=== PATIENT | female | born 1960 | race Caucasian/White ===

== ENCOUNTER 2017-05-01 20:07 | Emergency (ER) | payer MEDICAID ==
[2017-05-01 20:37] LABS: APPEARANCE,URINE CLEAR; BILIRUBIN,URINE NEGATIVE (NEGATIVE); GLUCOSE, URINE NEGATIVE (NEGATIVE); KETONES,URINE NEGATIVE (NEGATIVE); LEUKOCYTE ESTERASE,URINE NEGATIVE (NEGATIVE); NITRITE,URINE NEGATIVE (NEGATIVE); PROTEIN,URINE NEGATIVE (NEGATIVE); URINE SPECIFIC GRAVITY 1.002; UROBILINOGEN,URINE NEGATIVE mg/dL (<2.0)
[2017-05-01] MEDS ORDERED: OXYCODONE HCL IR 5 MG TABLET PO ONE (20:48)
[2017-05-01 21:01] LABS: URINE BARBITURATES SCREEN NEGATIVE; URINE METHADONE SCREEN NEGATIVE; URINE OPIATES LOW NEGATIVE; URINE PHENCYCLIDINE SCREEN NEGATIVE
--- NOTE | 2017-05-01 21:07 | ER Document Report ---
ED Psych Disorder / Suicide - General Chief Complaint: Psych Problem Stated Complaint: SUICIAL IDEATION Time Seen by Provider: 05/01/17 20:33 Mode of Arrival: Ambulatory Information source: Patient TRAVEL OUTSIDE OF THE [place] IN LAST 30 DAYS: No - HPI Patient complains to provider of: Suicidal ideation, Suicidal attempt Onset: Just prior to arrival Suicide Risk Factors: Chronic illness, Depressed Injury to: Wrist Normal mood: No Associated symptoms: Depressed, Flat affect Similar symptoms previously: Yes Notes: Patient is a 57-year-old female presenting to the emergency room complaining of depression with thoughts of suicide, she is accompanied by her sister Patricia Ramsey who filled me in on most of the information, reporting that patient has a history of liver cirrhosis, she continues to drink on a daily basis, was recently arrested on a DUI, was hospitalized in [place] recently as well, while she was visiting, patient has a history of depression with suicidal ideations in the past, today she attempted to cut her wrist with a dull knife - Related Data Allergies/Adverse Reactions: No Known Allergies Allergy (Unverified 03/27/16 09:54) Past Medical History - General Information source: Patient, Relative - Social History Smoking Status: Unknown if Ever Smoked Frequency of alcohol use: Heavy Drug Abuse: Marijuana Family History: Reviewed & Not Pertinent Patient has suicidal ideation: Yes Patient has homicidal ideation: No - Past Medical History Cardiac Medical History: Reports: Hx Congestive Heart Failure, Hx Hypertension Renal/ Medical History: Denies: Hx Peritoneal Dialysis Past Surgical History: Reports: Hx Appendectomy Review of Systems - Review of Systems Constitutional: No symptoms reported EENT: No symptoms reported Cardiovascular: No symptoms reported Respiratory: No symptoms reported Gastrointestinal: Abdominal pain Genitourinary: No symptoms reported Female Genitourinary: No symptoms reported Musculoskeletal: No symptoms reported Skin: No symptoms reported Hematologic/Lymphatic: No symptoms reported Neurological/Psychological: See HPI -: Yes All other systems reviewed and negative Physical Exam - Vital signs Vitals: Temp Pulse Resp BP Pulse Ox 98.0 F 76 18 124/65 97 05/01/17 20:29 05/01/17 20:29 05/01/17 20:29 05/01/17 20:29 05/01/17 20:29 Interpretation: Normal - General General appearance: Appears well, Alert - HEENT Head: Normocephalic, Atraumatic Eyes: Normal Pupils: PERRL - Respiratory Respiratory status: No respiratory distress Chest status: Nontender Breath sounds: Normal Chest palpation: Normal - Cardiovascular Rhythm: Regular Heart sounds: Normal auscultation Murmur: No - Abdominal Inspection: Normal Distension: Distended Bowel sounds: Normal Tenderness: Tender - Diffuse Organomegaly: No organomegaly - Back Back: Normal, Nontender - Extremities General upper extremity: Normal inspection, Nontender, Normal color, Normal ROM , Normal temperature General lower extremity: Normal inspection, Nontender, Normal color, Normal ROM , Normal temperature, Normal weight bearing. No: Eden's sign - Neurological Neuro grossly intact: Yes Cognition: Normal Orientation: AAOx4 [place] Coma Scale Eye Opening: Spontaneous [place] Coma Scale Verbal: Oriented [place] Coma Scale Motor: Obeys Commands [place] Coma Scale Total: 15 Speech: Normal Motor strength normal: LUE, RUE, LLE, RLE Sensory: Normal - Psychological Associated symptoms: Agitated, Depressed, Flat affect - Skin Skin Temperature: Warm Skin Moisture: Dry Skin Color: Normal Course - Re-evaluation Re-evalutation: 05/02/17 00:44 57-year-old female with history of depression, recent suicide attempt with superficial lacerations to bilateral lip wrists, as well as alcohol intoxication and abuse, placed on IVC paperwork for further evaluation and treatment by mental health team her sister Patricia Ramsey can be reached at [phone] for further information as patient was not very forthcoming with information this evening - Vital Signs Vital signs: Temp Pulse Resp BP Pulse Ox 98.0 F 76 18 124/65 97 05/01/17 20:29 05/01/17 20:29 05/01/17 20:29 05/01/17 20:29 05/01/17 20:29 - Laboratory Result Diagrams: 05/01/17 21:38 05/01/17 21:38 Laboratory results interpreted by me: 05/01/17 05/01/17 21:38 21:38 RBC 3.31 L Hgb 11.7 L Hct 34.2 L MCV 103 H MCH 35.3 H RDW 18.0 H Plt Count 132 L Sodium 149.1 H Potassium 3.5 L Chloride 113 H Total Bilirubin 4.2 H Direct Bilirubin 2.5 H AST 100 H Alkaline Phosphatase 347 H Albumin 3.0 L Salicylates < 1.0 L Acetaminophen < 10 L - EKG Interpretation by Me EKG shows normal: Sinus rhythm Rate: Normal Rhythm: NSR Discharge - Discharge Clinical Impression: Suicidal ideation, Self-injurious behavior Condition: Stable Disposition: PSYCH HOSP/UNIT Referrals: TORO WILKERSON FNP [Primary Care Provider] - Follow up as needed
[2017-05-01 21:52] LABS: ABSOLUTE EOSINOPHILS # (AUTO) 0.1 10^3/uL (0.0-0.6); ABSOLUTE LYMPHOCYTES (AUTO) 2.4 10^3/uL (0.5-4.7); ABSOLUTE MONOCYTES (AUTO) 0.5 10^3/uL (0.1-1.4); BASOPHILS % (AUTO) 0.7 % (0-2); EOSINOPHILS % (AUTO) 1.6 % (0-6); HEMATOCRIT 34.2 % (36.0-47.0); HEMOGLOBIN 11.7 g/dL (12.0-15.5); HGB HCT DIFFERENCE 0.9; LYMPHOCYTES % (AUTO) 39.2 % (13-45); MEAN CORPUSCULAR HEMOGLOBIN 35.3 pg (27.0-33.4); MEAN CORPUSCULAR HGB CONC 34.3 g/dL (32.0-36.0); MEAN CORPUSCULAR VOLUME 103 fl (80-97); RED BLOOD COUNT 3.31 10^6/uL (3.72-5.28); SEGMENTED NEUTROPHILS % (AUTO) 49.5 % (42-78)
[2017-05-01 22:03] LABS: ALANINE AMINOTRANSFERASE 35 U/L (9-52); ALCOHOL 280 mg/dL (NONE DETECTED); ALKALINE PHOSPHATASE 347 U/L (38-126); ANION GAP 12 (5-19); ASPARTATE AMINO TRANSFERASE 100 U/L (14-36); BILIRUBIN,DIRECT 2.5 mg/dL (0.0-0.4); BILIRUBIN,TOTAL 4.2 mg/dL (0.2-1.3); BLOOD UREA NITROGEN 10 mg/dL (7-20); CALCIUM 8.6 mg/dL (8.4-10.2); CARBON DIOXIDE 24 mmol/L (22-30); CHLORIDE 113 mmol/L (98-107); CREATININE RESULT 0.61 mg/dL (0.52-1.25); GLUCOSE 80 mg/dL (75-110); POTASSIUM 3.5 mmol/L (3.6-5.0); SODIUM 149.1 mmol/L (137-145)
--- NOTE | 2017-05-01 23:21 | EKG REPORT ---
SEVERITY:- NORMAL ECG - SINUS RHYTHM : Confirmed by: Janee Martinez 01-May-2017 23:20:06
[2017-05-02] MEDS ORDERED: OXYCODONE HCL IR 5 MG TABLET PO PRN (00:41)
--- NOTE | 2017-05-02 09:46 | ER Document Report ---
Doctor's Note Notes: 05/02/17 09:44 Patient is resting comfortably in the bed. Patient has a history of cirrhosis secondary to alcohol abuse. She complains of some generalized abdominal pain. Patient was just currently treated for pain. Patient is currently awaiting evaluation and disposition by pyschiatric care team.
--- NOTE | 2017-05-02 10:22 | ER Document Report ---
ED Psych Disorder / Suicide - General Mode of Arrival: Ambulatory Information source: Patient, Relative - sister TRAVEL OUTSIDE OF THE [place] IN LAST 30 DAYS: No - HPI Patient complains to provider of: Self injury Onset: Other - chronic Onset was: Gradual Suicide Risk Factors: Chronic illness - cirrhosis, Depressed, Substance abuse - daily ETOH Normal mood: Yes Associated symptoms: Anxious Similar symptoms previously: Yes Recently seen / treated by doctor: No <ILIR PIKE - Last Filed: 05/02/17 10:05> <CAMRON FANG - Last Filed: 05/02/17 10:42> - General Chief Complaint: Psych Problem Stated Complaint: SUICIAL IDEATION Time Seen by Provider: 05/01/17 20:33 - HPI Notes: Patient is a 57-year-old female presenting to the emergency room complaining of depression with thoughts of suicide. Patient reported that she has a history of liver cirrhosis; however, continues to drink on a daily basis. Patient states she was sober for roughly 3 years, and then last July/August broke her sobriety. Patient declines to state the precipitating events to her drinking again. Patient states she lives with her mother, and has been in contact with [facility], who has all of her information, and has been informed to call back daily at 0830. Patient states she did not make this call today, and prefers to make it from home. Patient states she has a disability hearing May 11 and "no matter what" has to be out in time for this hearing. Patient states she prefers [facility] because she can check herself out. Patient states she does not want to by suicide. Sister is bedside and states the patient needs help to achieve and maintain sobriety. Sister states it is a burden for their aging mother to care for her, and also to say "no" to her. Sister states she is off of work today and will help her facilitate detox placement, or pursue services. Patient is A&O. Mood is anxious with congruent affect. Patient denies suicidal/ homicidal ideations, intent, plan, or means. Patient denies A/V H; delusions not noted. Thought processes were guarded. Conversational speech was within normal limits for rate, tone, and prosody. Intellectual abilities were estimated within average range. Attention and focus were fair. Insight, judgment , and impulse control were poor Alcohol Use Disorder, Severe, per history Patient is psychiatrically cleared for discharge. Patient is recommended for rescind IVC and discharge to her sister to follow up with substance abuse services. Patient is encouraged to follow up with [facility] for assessment and possible detox placement. Patient was provided numerous resources. Patient denies wanting to by suicide. Patient engaged in planning for future events , substantiating she is not experiencing suicidal ideations, and thus no longer meets criteria for IVC per the [id number]. (ILIR PIKE) - Related Data Allergies/Adverse Reactions: No Known Allergies Allergy (Unverified 03/27/16 09:54) Past Medical History - General Information source: Patient, Relative - Social History Smoking Status: Unknown if Ever Smoked Frequency of alcohol use: Heavy Drug Abuse: Marijuana Family History: Reviewed & Not Pertinent Patient has suicidal ideation: No - denied 05/02 Patient has homicidal ideation: No - Past Medical History Cardiac Medical History: Reports: Hx Congestive Heart Failure, Hx Hypertension Renal/ Medical History: Denies: Hx Peritoneal Dialysis Past Surgical History: Reports: Hx Appendectomy <ILIR PIKE - Last Filed: 05/02/17 10:05> - Vital signs Vitals: Temp Pulse Resp BP Pulse Ox 98.0 F 76 18 124/65 97 05/01/17 20:29 05/01/17 20:29 05/01/17 20:29 05/01/17 20:29 05/01/17 20:29 Course - Laboratory Result Diagrams: 05/01/17 21:38 05/01/17 21:38 <ILIR PIKE - Last Filed: 05/02/17 10:05> - Laboratory Result Diagrams: 05/01/17 21:38 05/01/17 21:38 <CAMRON FANG - Last Filed: 05/02/17 10:42> - Vital Signs Vital signs: Temp Pulse Resp BP Pulse Ox 98.4 F 81 16 119/68 96 05/02/17 08:39 05/02/17 08:39 05/02/17 08:39 05/02/17 08:39 05/02/17 08:39 - Laboratory Laboratory results interpreted by me: 05/01/17 05/01/17 21:38 21:38 RBC 3.31 L Hgb 11.7 L Hct 34.2 L MCV 103 H MCH 35.3 H RDW 18.0 H Plt Count 132 L Sodium 149.1 H Potassium 3.5 L Chloride 113 H Total Bilirubin 4.2 H Direct Bilirubin 2.5 H AST 100 H Alkaline Phosphatase 347 H Albumin 3.0 L Salicylates < 1.0 L Acetaminophen < 10 L Discharge <ILIR PIKE - Last Filed: 05/02/17 10:05> <CAMRON FANG - Last Filed: 05/02/17 10:42> - Discharge Clinical Impression: Suicidal ideation, Self-injurious behavior, Alcohol abuse Condition: Stable Disposition: HOME, SELF-CARE Additional Instructions: Acute Alcohol Intoxication Your evaluation revealed very high levels of alcohol. You can from drinking a large amount of alcohol rapidly! Further, there's the risk of falls , traffic accidents, and fights. A high portion (about 50 percent) of the serious injuries seen in hospital emergency rooms are caused by alcohol. Alcohol overdosage is usually due to an underlying emotional or psychiatric problem. You may benefit from counselling. If "binge" drinking is an ongoing problem for you, or if you drink ANY AMOUNT of alcohol EVERY day, you most likely have a tendency to alcoholism. You should avoid alcohol totally. We can refer you for treatment. Persons with alcohol problems are often also prone to other addictions -- you should discuss any use of medications or drugs with the doctor. You should be watched at home for the next several hours by someone who has not been drinking. Get extra fluids for the next 24 hours. Call the doctor if there is repeated vomiting, increasing headache, decreasing level of alertness, or any other worsening. Please follow up with [facility] to pursue substance abuse assessment and any recommended services. Engaging in counseling will assist you in developing coping skills to replace self injurious cutting. Please return if your symptoms worsen. Referrals: TORO WILKERSON FNP [Primary Care Provider] - Follow up as needed [facility] [Provider Group] - 05/02/17
[2017-05-02 10:57] VITALS: BP 132/70
== END 2017-05-02 10:57 | disposition home or self-care (01) ==
LOC: ER 20:07
DX: S61.512A Laceration without foreign body of left wrist, initial encounter (principal); S61.511A Laceration without foreign body of right wrist, initial encounter; X78.1XXA Intentional self-harm by knife, initial encounter; F32.9 Major depressive disorder, single episode, unspecified; F10.129 Alcohol abuse with intoxication, unspecified; R10.84 Generalized abdominal pain; R14.0 Abdominal distension (gaseous); I10 Essential (primary) hypertension; Z87.19 Personal history of other diseases of the digestive system
CPT/HCPCS: 93005; 99285; 36415; 80307 ×4; 85025; 80053; 81001; 93010; J3490 ×2

== ENCOUNTER → 2017-07-26 | Outpatient (CLI) | payer MEDICAID ==
[2017-07-26 14:24] LABS: APPEARANCE,URINE CLEAR; BILIRUBIN,URINE NEGATIVE (NEGATIVE); GLUCOSE, URINE NEGATIVE (NEGATIVE); KETONES,URINE NEGATIVE (NEGATIVE); LEUKOCYTE ESTERASE,URINE SMALL (NEGATIVE); NITRITE,URINE NEGATIVE (NEGATIVE); PROTEIN,URINE NEGATIVE (NEGATIVE); URINE SPECIFIC GRAVITY 1.008; UROBILINOGEN,URINE NEGATIVE mg/dL (<2.0)
[2017-07-26 14:37] LABS: ALANINE AMINOTRANSFERASE 35 U/L (9-52); ALBUMIN 2.9 g/dL (3.5-5.0); ALKALINE PHOSPHATASE 240 U/L (38-126); ANION GAP 9 (5-19); ASPARTATE AMINO TRANSFERASE 62 U/L (14-36); BILIRUBIN,DIRECT 1.9 mg/dL (0.0-0.4); BILIRUBIN,TOTAL 3.9 mg/dL (0.2-1.3); BLOOD UREA NITROGEN 10 mg/dL (7-20); CALCIUM 8.4 mg/dL (8.4-10.2); CARBON DIOXIDE 24 mmol/L (22-30); CHLORIDE 106 mmol/L (98-107); CREATININE RESULT 0.74 mg/dL (0.52-1.25); GLUCOSE 110 mg/dL (75-110); POTASSIUM 4.5 mmol/L (3.6-5.0); SODIUM 138.7 mmol/L (137-145)
[2017-07-26 14:42] LABS: ABSOLUTE EOSINOPHILS # (AUTO) 0.1 10^3/uL (0.0-0.6); ABSOLUTE MONOCYTES (AUTO) 0.3 10^3/uL (0.1-1.4); ABSOLUTE NEUT (AUTO) 1.5 10^3/uL (1.7-8.2); BASOPHILS % (AUTO) 0.4 % (0-2); EOSINOPHILS % (AUTO) 2.3 % (0-6); HEMOGLOBIN 10.6 g/dL (12.0-15.5); HGB HCT DIFFERENCE 1.8; LYMPHOCYTES % (AUTO) 34.7 % (13-45); MEAN CORPUSCULAR HEMOGLOBIN 35.4 pg (27.0-33.4); MEAN CORPUSCULAR HGB CONC 35.3 g/dL (32.0-36.0); MEAN CORPUSCULAR VOLUME 100 fl (80-97); MONOCYTES % (AUTO) 11.5 % (3-13); RED BLOOD COUNT 2.99 10^6/uL (3.72-5.28); RED CELL DISTRIBUTION WIDTH 20.9 % (11.5-14.0); SEGMENTED NEUTROPHILS % (AUTO) 51.1 % (42-78); WHITE BLOOD COUNT 2.9 10^3/uL (4.0-10.5)
[2017-07-26 14:54] LABS: FREE T3 3.36 pg/mL (2.77-5.27)
[2017-07-26 15:08] LABS: THYROID STIMULATING HORMONE 0.82 uIU/mL (0.47-4.68)
[2017-07-26 15:17] LABS: ADD HIVPANEL? NO; HIV (1 AND 2) ANTIBODY NEGATIVE (NEGATIVE)
[2017-07-29 02:36] LABS: HEPATITIS C VIRUS AB <0.1 s/co ratio (0.0-0.9)
== END ==
LOC: OD 12:48
PROVIDERS: ATTEND Emergency Medicine
DX: Z20.6 Contact with and (suspected) exposure to human immunodeficiency virus [HIV] (principal); E16.2 Hypoglycemia, unspecified; I10 Essential (primary) hypertension; N30.90 Cystitis, unspecified without hematuria; Z79.899 Other long term (current) drug therapy
CPT/HCPCS: 36415; 80053; 81001; 82977; 83036; 84439; 84443; 84481; 85025; 86592; 86701; 86803; 86804; 87340